=== PATIENT | female | born 1985 | race Hispanic/Latino ===

== ENCOUNTER 2019-03-02 10:49 | Emergency (ER) | payer OTHER ==
[2019-03-02 11:32] LABS: APPEARANCE,URINE CLOUDY (CLEAR); BILIRUBIN,URINE NEGATIVE (NEGATIVE); COLOR,URINE YELLOW (YELLOW); GLUCOSE, URINE (UA) NEGATIVE (NEGATIVE); KETONES,URINE NEGATIVE (NEGATIVE); LEUKOCYTE ESTERASE ,URINE LARGE (NEGATIVE); NITRATE,URINE NEGATIVE (NEGATIVE); OCCULT BLOOD,URINE LARGE (NEGATIVE); PROTEIN,URINE 30 mg/dL (NEGATIVE); UROBILINOGEN,URINE 0.2 mg/dL (0.2-1.0)
[2019-03-02 11:34] LABS: HCG,QUAL RESULT NEGATIVE (NEGATIVE)
[2019-03-02 11:47] LABS: BACTERIA,URINE Moderate /HPF (None Seen); RBC,URINE >100 /HPF (0-1); WBC,URINE TNTC /HPF (0-1)
[2019-03-02] MEDS ORDERED: LIDOCAINE HCL-MPF 1% 2ML VIAL ONE (12:03)
[2019-03-02] MEDS ORDERED: KETOROLAC TROMETHAMINE 30MG/ML ONE (12:03)
[2019-03-02] MEDS ORDERED: CEFTRIAXONE SODIUM 1 GM ONE (12:03)
== END 2019-03-02 13:41 | disposition home or self-care (01) ==
LOC: EDH 10:49
DX: N39.0 Urinary tract infection, site not specified (principal); Z72.0 Tobacco use
CPT/HCPCS: 81001; 81025; 87077; 87088; 87186; 96372 ×2; 99284; J0696; J1885; J3490

== ENCOUNTER 2020-09-29 22:54 | Emergency (ER) | payer OTHER ==
[2020-09-29] MEDS ORDERED: HYDROCODONE/ACETAMINOPHEN 10/325 MG TAB ONE (23:10)
== END 2020-09-29 23:48 | disposition home or self-care (01) ==
LOC: EDH 22:54
DX: S43.51XA Sprain of right acromioclavicular joint, initial encounter (principal); Z72.0 Tobacco use; W18.39XA Other fall on same level, initial encounter; Y93.89 Activity, other specified; Y92.89 Other specified places as the place of occurrence of the external cause; Y99.8 Other external cause status
CPT/HCPCS: 73030